=== PATIENT | female | born 1980 | race Caucasian/White ===

== ENCOUNTER 2016-09-05 18:15 | Emergency (ER) | payer BC ==
--- NOTE | 2016-09-05 19:55 | ED NURSING NOTES ---
Clinical Report - Nurses [facility] [address] [place] [address] 09/05/2016 18:20 Patient: LISA WALDRON TRIAGE Triage time 19:29. Acuity: LEVEL 3. Chief Complaint: SKIN RASH. 19:35. Alert. --19:35 Ted Hart R.N. 19:29 09/05/16. BP: 103/74. HR: 73. RR: 16. O2 saturation: 98%. Temp: 98.2 F. Pain level now: 0/10. --19:35 Ted Hart R.N. Weight: 77.1 kg stated. Height/Length: 59 inches Per Patient. BMI: 34.4. --19:32 Ted Hart R.N. Medications None. --19:33 Ted Hart R.N. Allergies No Known Drug Allergy. --19:33 Ted Hart R.N. Medication/allergy information source: the patient. --19:35 Ted Hart R.N. History Arrived by private vehicle. Historian: patient. Accompanied by family. Primary physician (Tomás). Reported as located on the chest, right arm and left arm. This started yesterday. It is described as itchy. ( Patient reports using a cream for scabies last Thursday then yesterday noticed a rash). 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 PAST MEDICAL HX: Immunizations: up-to-date. Last normal menstrual period was 2 weeks ago. SOCIAL HX: Never smoker. No alcohol use or drug use. No infectious disease exposure. ABUSE ASSESSMENT: No report of abuse. FALL RISK ASSESSMENT: Fall risk assessment completed. No fall risk identified. NUTRITIONAL RISK ASSESSMENT: The nutritional risk assessment revealed no deficiencies. FUNCTIONAL ASSESSMENT: Functional assessment: no impairments noted. LEARNING NEEDS ASSESSMENT: The learning needs assessment revealed no barriers. SKIN INTEGRITY ASSESSMENT: Skin integrity risk assessment completed. No skin integrity risk identified. --19:35 Ted Hart R.N. PROBLEMS: no known problems. ADDITIONAL SURGERIES: . Left wrist surgery . Tubal Ligation. --19:33 Ted Hart R.N. Interventions ID band on patient. To treatment room. --19:35 Ted Hart R.N. PHYSICAL ASSESSMENT 19:36. Ambulatory to room. Patient gowned. GENERAL / NEURO / PSYCH: Alert. Oriented X 4. HEENT: Mucous membranes are pink. RESPIRATORY: Respirations not labored. SKIN: Skin is intact, warm, dry and non-tender. Skin rash on the chest, right arm and left arm. Normal skin turgor. --19:36 Ted Hart R.N. NURSING PROGRESS NOTES 19:36. Head of bed elevated. Two patient identifiers checked. Call light placed in reach. Bed placed in lowest position. Brakes of bed on. Patient ready for evaluation- chart flagged. --19:36 Ted Hart R.N. DISPOSITION / DISCHARGE 20:03 09/05/16. Departure time: 20:03 Sep 05 2016. Condition at departure: unchanged. The goals identified in the patient's plan of care were met. No learning barriers present. Discharge instructions provided and reviewed with the patient. Reviewed warnings (Patient verbalized awareness of warning s/sx listed in dc paperwork.). Reviewed medication(s) side effects, precautions, dosing and course information. Prescription(s) given to the patient (Vistaril and zyrtec). Treatments reviewed. Reviewed referral to a primary care physician for followup. Patient verbalized understanding. Written instructions provided in French. The patient was discharged by the physician electrician station assistant. She was discharged home and accompanied by family. She left the Emergency Department ambulatory and via private vehicle. Family member driving. FALL RISK ASSESSMENT: Fall risk assessment completed. No fall risk identified. --20:03 Aisha Sherwood 20:02 09/05/16. BP: deferred. HR: deferred. RR: deferred. O2 saturation: deferred. Temp: deferred. Pain level now deferred. --20:03 Aisha Sherwood. Locked/Released at 09/05/2016 20:04 by Aisha Sherwood,
--- NOTE | 2016-09-05 19:55 | ED NURSING NOTES ---
Clinical Report - Nurses [facility] [address] [place] [address] 09/05/2016 18:20 Patient: LISA WALDRON TRIAGE Triage time 19:29. Acuity: LEVEL 3. Chief Complaint: SKIN RASH. 19:35. Alert. --19:35 Ted Hart R.N. 19:29 09/05/16. BP: 103/74. HR: 73. RR: 16. O2 saturation: 98%. Temp: 98.2 F. Pain level now: 0/10. --19:35 Ted Hart R.N. Weight: 77.1 kg stated. Height/Length: 59 inches Per Patient. BMI: 34.4. --19:32 Ted Hart R.N. Medications None. --19:33 Ted Hart R.N. Allergies No Known Drug Allergy. --19:33 Ted Hart R.N. Medication/allergy information source: the patient. --19:35 Ted Hart R.N. History Arrived by private vehicle. Historian: patient. Accompanied by family. Primary physician (Tomás). Reported as located on the chest, right arm and left arm. This started yesterday. It is described as itchy. ( Patient reports using a cream for scabies last Thursday then yesterday noticed a rash). 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 PAST MEDICAL HX: Immunizations: up-to-date. Last normal menstrual period was 2 weeks ago. SOCIAL HX: Never smoker. No alcohol use or drug use. No infectious disease exposure. ABUSE ASSESSMENT: No report of abuse. FALL RISK ASSESSMENT: Fall risk assessment completed. No fall risk identified. NUTRITIONAL RISK ASSESSMENT: The nutritional risk assessment revealed no deficiencies. FUNCTIONAL ASSESSMENT: Functional assessment: no impairments noted. LEARNING NEEDS ASSESSMENT: The learning needs assessment revealed no barriers. SKIN INTEGRITY ASSESSMENT: Skin integrity risk assessment completed. No skin integrity risk identified. --19:35 Ted Hart R.N. PROBLEMS: no known problems. ADDITIONAL SURGERIES: . Left wrist surgery . Tubal Ligation. --19:33 Ted Hart R.N. Interventions ID band on patient. To treatment room. --19:35 Ted Hart R.N. PHYSICAL ASSESSMENT 19:36. Ambulatory to room. Patient gowned. GENERAL / NEURO / PSYCH: Alert. Oriented X 4. HEENT: Mucous membranes are pink. RESPIRATORY: Respirations not labored. SKIN: Skin is intact, warm, dry and non-tender. Skin rash on the chest, right arm and left arm. Normal skin turgor. --19:36 Ted Hart R.N. NURSING PROGRESS NOTES 19:36. Head of bed elevated. Two patient identifiers checked. Call light placed in reach. Bed placed in lowest position. Brakes of bed on. Patient ready for evaluation- chart flagged. --19:36 Ted Hart R.N. DISPOSITION / DISCHARGE 20:03 09/05/16. Departure time: 20:03 Sep 05 2016. Condition at departure: unchanged. The goals identified in the patient's plan of care were met. No learning barriers present. Discharge instructions provided and reviewed with the patient. Reviewed warnings (Patient verbalized awareness of warning s/sx listed in dc paperwork.). Reviewed medication(s) side effects, precautions, dosing and course information. Prescription(s) given to the patient (Vistaril and zyrtec). Treatments reviewed. Reviewed referral to a primary care physician for followup. Patient verbalized understanding. Written instructions provided in Lao. The patient was discharged by the physician assistant clinical director. She was discharged home and accompanied by family. She left the Emergency Department ambulatory and via private vehicle. Family member driving. FALL RISK ASSESSMENT: Fall risk assessment completed. No fall risk identified. --20:03 Aisha Sherwood 20:02 09/05/16. BP: deferred. HR: deferred. RR: deferred. O2 saturation: deferred. Temp: deferred. Pain level now deferred. --20:03 Aisha Sherwood. Locked/Released at 09/05/2016 20:04 by Aisha Sherwood,
--- NOTE | 2016-09-05 19:55 | ED CLINICAL REPORT ---
Clinical Report - Physicians/Mid Levels [facility] [address] [place] [address] 09/05/2016 18:20 Patient: LISA WALDRON Time Seen: 19:40 Sep 05 2016. Arrived- By private vehicle. Historian- patient. HISTORY OF PRESENT ILLNESS Chief Complaint: SKIN RASH. This started yesterday and is still present (persistent). It was abrupt in onset. It is described as itchy. It has been generalized in location. A possible cause has been identified. She has recently taken medication. (Patient's was recently diagnosed with possible scabies and given permethrin. The patient use this yesterday and said today she's had a little bit of rash on her chest and back. She denies any shortness of breath). Similar symptoms previously: None. Recent medical care: Not recently seen/assessed. REVIEW OF SYSTEMS No fever, chills, cough, difficulty breathing or hoarseness. No headache, nausea or vomiting. All systems otherwise negative, except as recorded above. PAST HISTORY See nurses notes. Has not had hives. No history of heart disease or lung disease. SOCIAL HISTORY Never smoker. No alcohol use or drug use. PHYSICAL EXAM Appearance: Alert. Oriented X3. No acute distress. Eyes: Conjunctivae and eyelids normal. ENT: Ears normal. Nose normal. Pharynx normal. Neck: Neck supple. No lymphadenopathy. Respiratory: No respiratory distress. Skin: Skin warm and dry. Normal skin color. Normal skin turgor. No erythema. No cellulitis. Rash present on the chest and back. The rash is fine and maculopapular. No weeping, skin-line distribution like pityriasis rosea or crusting. Extremities: Normal external inspection. Neuro: Oriented X 3. No motor deficit. No sensory deficit. PROGRESS AND PROCEDURES Course of Care: patient stable. She is had a mild contactdermatitis to the permethrin. No murmurs putting her on oral steroids. We'll use antihistamines and it should improve in the next 2 or 3 days. Return here if any worsening. Disposition: Discharged in good condition. CLINICAL IMPRESSION Mild irritative contact dermatitis. INSTRUCTIONS No restrictions to activity. Warnings: GENERAL WARNINGS: Return or contact your physician immediately if your condition worsens or changes unexpectedly, if not improving as expected, or if other problems arise. Specifically return if breathing difficulty worsens. Prescription Medications: Vistaril 25 mg: take 1-2 orally at bedtime as needed for itching. Dispense ten (10). No refill. Substitution is permissible. Zyrtec 10 mg: take 1 tablet orally every day for 10 days. Dispense ten (10). No refill. Substitution is permissible. Follow-up: Follow up with your doctor in five days if not better. Understanding of the discharge instructions verbalized by patient and family. (Electronically signed by Reji Bui, 09/06/2016 0:21)
--- NOTE | 2016-09-05 19:55 | ED CLINICAL REPORT ---
Clinical Report - Physicians/Mid Levels [facility] [address] [place] [address] 09/05/2016 18:20 Patient: LISA WALDRON Time Seen: 19:40 Sep 05 2016. Arrived- By private vehicle. Historian- patient. HISTORY OF PRESENT ILLNESS Chief Complaint: SKIN RASH. This started yesterday and is still present (persistent). It was abrupt in onset. It is described as itchy. It has been generalized in location. A possible cause has been identified. She has recently taken medication. (Patient's was recently diagnosed with possible scabies and given permethrin. The patient use this yesterday and said today she's had a little bit of rash on her chest and back. She denies any shortness of breath). Similar symptoms previously: None. Recent medical care: Not recently seen/assessed. REVIEW OF SYSTEMS No fever, chills, cough, difficulty breathing or hoarseness. No headache, nausea or vomiting. All systems otherwise negative, except as recorded above. PAST HISTORY See nurses notes. Has not had hives. No history of heart disease or lung disease. SOCIAL HISTORY Never smoker. No alcohol use or drug use. PHYSICAL EXAM Appearance: Alert. Oriented X3. No acute distress. Eyes: Conjunctivae and eyelids normal. ENT: Ears normal. Nose normal. Pharynx normal. Neck: Neck supple. No lymphadenopathy. Respiratory: No respiratory distress. Skin: Skin warm and dry. Normal skin color. Normal skin turgor. No erythema. No cellulitis. Rash present on the chest and back. The rash is fine and maculopapular. No weeping, skin-line distribution like pityriasis rosea or crusting. Extremities: Normal external inspection. Neuro: Oriented X 3. No motor deficit. No sensory deficit. PROGRESS AND PROCEDURES Course of Care: patient stable. She is had a mild contactdermatitis to the permethrin. No murmurs putting her on oral steroids. We'll use antihistamines and it should improve in the next 2 or 3 days. Return here if any worsening. Disposition: Discharged in good condition. CLINICAL IMPRESSION Mild irritative contact dermatitis. INSTRUCTIONS No restrictions to activity. Warnings: GENERAL WARNINGS: Return or contact your physician immediately if your condition worsens or changes unexpectedly, if not improving as expected, or if other problems arise. Specifically return if breathing difficulty worsens. Prescription Medications: Vistaril 25 mg: take 1-2 orally at bedtime as needed for itching. Dispense ten (10). No refill. Substitution is permissible. Zyrtec 10 mg: take 1 tablet orally every day for 10 days. Dispense ten (10). No refill. Substitution is permissible. Follow-up: Follow up with your doctor in five days if not better. Understanding of the discharge instructions verbalized by patient and family. (Electronically signed by Reji Bui, 09/06/2016 0:21)
--- NOTE | 2016-09-06 00:22 | ED MAR SUMMARY ---
..... Medication Administration Record [facility] [address], [place] [id number] Patient: LISA WALDRON Visit ID: [id number] 35y, F Weight: 77.1 kg Height/Length: 59 in BMI: 34.4 ALLERGIES: No Known Drug Allergy
--- NOTE | 2016-09-06 00:22 | ED DISCHARGE INSTRUCTIONS ---
Patient: LISA WALDRON General Instructions [facility] VisitID: [id number] [place] [address] 35y, F Registration Date/Time: 09/05/2016 Mild irritative contact dermatitis. INSTRUCTIONS No restrictions to activity. Warnings: GENERAL WARNINGS: Return or contact your physician immediately if your condition worsens or changes unexpectedly, if not improving as expected, or if other problems arise. Specifically return if breathing difficulty worsens. Prescription Medications: Vistaril 25 mg: take 1-2 orally at bedtime as needed for itching. Dispense ten (10). No refill. Substitution is permissible. Zyrtec 10 mg: take 1 tablet orally every day for 10 days. Dispense ten (10). No refill. Substitution is permissible. Follow-up: Follow up with your doctor in five days if not better. Understanding of the discharge instructions verbalized by patient and family. ADDITIONAL INFORMATION Dermatitis (Non-Specific) Dermatitis is an inflammation of the skin. The exact cause of your rash is not certain. However, this rash does not appear to be an infection or contagious illness. Taking care of the rash at home should help relieve your symptoms. Home Care: Keep the areas of rash clean by washing it daily. This also helps to keep the skin moist. Use a neutral pH soap such as Dove or Lever 2000. Apply a moisturizing lotion after bathing to prevent dry skin. Avoid skin irritants (wool or silk clothing, grease, oils, some medicines, harsh soaps, and detergents). Wear absorbent, soft fabrics next to the skin rather than rough or scratchy materials. Unless another medicine was prescribed, you may use Hydrocortisone cream (which you can get without a prescription) to reduce the inflammation. Follow Up: Make an appointment with your doctor in the next 1 to 2 weeks if your symptoms do not improve with the above measures. Get Prompt Medical Attention if any of the following occur: Increasing area of redness or pain in the skin Yellow crusts or drainage from the rash Joint pain New rash that appears in other areas of the body Fever of 100.4F (38C) or higher, or as directed by your healthcare provider Cetirizine Hydrochloride Oral tablet What is this medicine? CETIRIZINE (se FANY shah) is an antihistamine. This medicine is used to treat or prevent symptoms of allergies. It is also used to help reduce itchy skin rash and hives. How should I use this medicine? Take this medicine by mouth with a glass of water. Follow the directions on the prescription label. You can take this medicine with food or on an empty stomach. Take your medicine at regular times. Do not take more often than directed. You may need to take this medicine for several days before your symptoms improve. Talk to your curator of education regarding the use of this medicine in children. Special care may be needed. While this drug may be prescribed for children as young as 6 years of age for selected conditions, precautions do apply. What side effects may I notice from receiving this medicine? Side effects that you should report to your doctor or health healthcare recruiter as soon as possible: allergic reactions like skin rash, itching or hives, swelling of the face, lips, or tongue changes in vision or hearing fast heartbeat high blood pressure infection trouble passing urine or change in the amount of urine Side effects that usually do not require medical attention (report to your doctor or health healthcare recruiter if they continue or are bothersome): irritability loss of sleep sore throat stomach pain swelling What may interact with this medicine? other medicines for colds or allergies theophylline What if I miss a dose? If you miss a dose, take it as soon as you can. If it is almost time for your next dose, take only that dose. Do not take double or extra doses. Where should I keep my medicine? Keep out of the reach of children. Store at room temperature between 15 and 30 degrees C (59 and 86 degrees F). Throw away any unused medicine after the expiration date. What should I tell my health care provider before I take this medicine? They need to know if you have any of these conditions: kidney disease liver disease an unusual or allergic reaction to cetirizine, hydroxyzine, other medicines, foods, dyes, or preservatives or trying to get breast-feeding What should I watch for while using this medicine? Visit your doctor or health healthcare recruiter for regular checks on your health. Tell your doctor if your symptoms do not improve. You may get drowsy or dizzy. Do not drive, use machinery, or do anything that needs mental alertness until you know how this medicine affects you. Do not stand or sit up quickly, especially if you are an older patient. This reduces the risk of dizzy or fainting spells. Your mouth may get dry. Chewing sugarless gum or sucking hard candy, and drinking plenty of water may help. Contact your doctor if the problem does not go away or is severe. You have been given the following additional information: Dermatitis, Non-Specific Cetirizine Hydrochloride Oral tablet No restrictions to activity. (Electronically signed by Reji Bui, 09/06/2016 0:21)
--- NOTE | 2016-09-06 00:22 | ED DISCHARGE INSTRUCTIONS ---
Patient: LISA WALDRON General Instructions [facility] VisitID: [id number] [place] [address] 35y, F Registration Date/Time: 09/05/2016 Mild irritative contact dermatitis. INSTRUCTIONS No restrictions to activity. Warnings: GENERAL WARNINGS: Return or contact your physician immediately if your condition worsens or changes unexpectedly, if not improving as expected, or if other problems arise. Specifically return if breathing difficulty worsens. Prescription Medications: Vistaril 25 mg: take 1-2 orally at bedtime as needed for itching. Dispense ten (10). No refill. Substitution is permissible. Zyrtec 10 mg: take 1 tablet orally every day for 10 days. Dispense ten (10). No refill. Substitution is permissible. Follow-up: Follow up with your doctor in five days if not better. Understanding of the discharge instructions verbalized by patient and family. ADDITIONAL INFORMATION Dermatitis (Non-Specific) Dermatitis is an inflammation of the skin. The exact cause of your rash is not certain. However, this rash does not appear to be an infection or contagious illness. Taking care of the rash at home should help relieve your symptoms. Home Care: Keep the areas of rash clean by washing it daily. This also helps to keep the skin moist. Use a neutral pH soap such as Dove or Lever 2000. Apply a moisturizing lotion after bathing to prevent dry skin. Avoid skin irritants (wool or silk clothing, grease, oils, some medicines, harsh soaps, and detergents). Wear absorbent, soft fabrics next to the skin rather than rough or scratchy materials. Unless another medicine was prescribed, you may use Hydrocortisone cream (which you can get without a prescription) to reduce the inflammation. Follow Up: Make an appointment with your doctor in the next 1 to 2 weeks if your symptoms do not improve with the above measures. Get Prompt Medical Attention if any of the following occur: Increasing area of redness or pain in the skin Yellow crusts or drainage from the rash Joint pain New rash that appears in other areas of the body Fever of 100.4F (38C) or higher, or as directed by your healthcare provider Cetirizine Hydrochloride Oral tablet What is this medicine? CETIRIZINE (se FANY shah) is an antihistamine. This medicine is used to treat or prevent symptoms of allergies. It is also used to help reduce itchy skin rash and hives. How should I use this medicine? Take this medicine by mouth with a glass of water. Follow the directions on the prescription label. You can take this medicine with food or on an empty stomach. Take your medicine at regular times. Do not take more often than directed. You may need to take this medicine for several days before your symptoms improve. Talk to your precision mechanical instrument maker regarding the use of this medicine in children. Special care may be needed. While this drug may be prescribed for children as young as 6 years of age for selected conditions, precautions do apply. What side effects may I notice from receiving this medicine? Side effects that you should report to your doctor or health child care centre director as soon as possible: allergic reactions like skin rash, itching or hives, swelling of the face, lips, or tongue changes in vision or hearing fast heartbeat high blood pressure infection trouble passing urine or change in the amount of urine Side effects that usually do not require medical attention (report to your doctor or health child care centre director if they continue or are bothersome): irritability loss of sleep sore throat stomach pain swelling What may interact with this medicine? other medicines for colds or allergies theophylline What if I miss a dose? If you miss a dose, take it as soon as you can. If it is almost time for your next dose, take only that dose. Do not take double or extra doses. Where should I keep my medicine? Keep out of the reach of children. Store at room temperature between 15 and 30 degrees C (59 and 86 degrees F). Throw away any unused medicine after the expiration date. What should I tell my health care provider before I take this medicine? They need to know if you have any of these conditions: kidney disease liver disease an unusual or allergic reaction to cetirizine, hydroxyzine, other medicines, foods, dyes, or preservatives or trying to get breast-feeding What should I watch for while using this medicine? Visit your doctor or health child care centre director for regular checks on your health. Tell your doctor if your symptoms do not improve. You may get drowsy or dizzy. Do not drive, use machinery, or do anything that needs mental alertness until you know how this medicine affects you. Do not stand or sit up quickly, especially if you are an older patient. This reduces the risk of dizzy or fainting spells. Your mouth may get dry. Chewing sugarless gum or sucking hard candy, and drinking plenty of water may help. Contact your doctor if the problem does not go away or is severe. You have been given the following additional information: Dermatitis, Non-Specific Cetirizine Hydrochloride Oral tablet No restrictions to activity. (Electronically signed by Reji Bui, 09/06/2016 0:21)
--- NOTE | 2016-09-06 00:22 | ED MAR SUMMARY ---
..... Medication Administration Record [facility] [address] [place], [place] [id number] Patient: LISA WALDRON Visit ID: [id number] 35y, F Weight: 77.1 kg Height/Length: 59 in BMI: 34.4 ALLERGIES: No Known Drug Allergy
--- NOTE | 2016-09-06 00:22 | ED MED RECONCILIATION SUMMARY ---
Patient: LISA WALDRON Medication Reconciliation Report [facility] VisitID: [id number] [place] [address] 35y, F Registration Date/Time: 09/05/2016 Weight: 77.1 kg Height/Length: 59 in. BMI: 34.4 ALLERGIES: No Known Drug Allergy The patient's Home Medications are listed below: NONE. The source(s) of the original Home Medication information: patient The following Medications were given to the patient in the Emergency Department: None. The following Medications were prescribed to the patient: Vistaril 25 mg: take 1-2 orally at bedtime as needed for itching. Dispense ten (10). No refill. Substitution is permissible. -- Reji Bui Zyrtec 10 mg: take 1 tablet orally every day for 10 days. Dispense ten (10). No refill. Substitution is permissible. -- Reji Bui
--- NOTE | 2016-09-06 00:22 | ED MED RECONCILIATION SUMMARY ---
Patient: LISA WALDRON Medication Reconciliation Report [facility] VisitID: [id number] [place] [address] 35y, F Registration Date/Time: 09/05/2016 Weight: 77.1 kg Height/Length: 59 in. BMI: 34.4 ALLERGIES: No Known Drug Allergy The patient's Home Medications are listed below: NONE. The source(s) of the original Home Medication information: patient The following Medications were given to the patient in the Emergency Department: None. The following Medications were prescribed to the patient: Vistaril 25 mg: take 1-2 orally at bedtime as needed for itching. Dispense ten (10). No refill. Substitution is permissible. -- Reji Bui Zyrtec 10 mg: take 1 tablet orally every day for 10 days. Dispense ten (10). No refill. Substitution is permissible. -- Reji Bui
== END 2016-09-05 20:03 | disposition home or self-care (01) ==
LOC: ED SRH 18:15
DX: L25.9 Unspecified contact dermatitis, unspecified cause (principal)